=== PATIENT | male | born 1945 | race Caucasian/White ===

== ENCOUNTER 2016-11-12 08:47 | Day surgery (SDC) | payer MEDICARE ==
[2016-02-07 09:51] VITALS: BMI 30.5
[2016-11-12] MEDS ORDERED: Lactated Ringer's 500 ML IV ONE (09:46)
[2016-11-12 10:08] VITALS: TEMP 96.7
[2016-11-12] MEDS ORDERED: Propofol 10 mg/ml Inj (20 ML) ONE (11:14)
[2016-11-12 11:52] VITALS: BP 110/70; PULSE 65; RESP 15; O2SAT 99
== END 2016-11-12 12:30 | disposition home or self-care (01) ==
LOC: H.ENDO 08:47
PROVIDERS: ATTEND Internal Medicine Gastroenterology
DX: Z12.11 Encounter for screening for malignant neoplasm of colon (principal); I10 Essential (primary) hypertension; K64.8 Other hemorrhoids
CPT/HCPCS: 45378; J2001; J2704; J7120